=== PATIENT | female | born 1975 | race Caucasian/White ===

== ENCOUNTER 2023-01-17 01:07 | Emergency (ER) | payer MEDICAID ==
[~2023-01-17] VITALS: Ht 162.6 cm; Wt 86.2 kg
[2023-01-17 01:14] VITALS: BP 141/96
[2023-01-17] MEDS ORDERED: FLUORESCEIN OPTH STRIP 1 MG OP ONE (01:45)
[2023-01-17] MEDS ORDERED: TETRACAINE HCL/PF 0.5% OPTH 4 ML BTL OP ONE (01:45)
[2023-01-17] MEDS ORDERED: ERYT5OIN58 OP (03:17)
[2023-01-17] MEDS ORDERED: IBUP-2213 PO (03:17)
[2023-01-17 03:49] VITALS: BP 141/96
--- NOTE | 2023-01-17 03:49 | NUR ---
Patient discharged with v/s stable. Written and verbal after care instructions given and explained. New rx ibuprofen and erythomycin. Patient verbalized understanding. Ambulatory with steady gait. All questions addressed prior to discharge. Advised to follow up with PMD.
--- NOTE | 2023-01-17 03:49 | NUR ---
Pt seen and evaluated by RALPH
== END 2023-01-17 03:49 | disposition home or self-care (01) ==
LOC: MED 01:07
DX: H01.004 Unspecified blepharitis left upper eyelid (principal); H00.014 Hordeolum externum left upper eyelid; Z79.1 Long term (current) use of non-steroidal anti-inflammatories (NSAID); Z79.2 Long term (current) use of antibiotics
CPT/HCPCS: 99283

== ENCOUNTER 2023-04-20 18:28 | Emergency (ER) | payer MEDICAID ==
[~2023-04-20] VITALS: Ht 160 cm; Wt 86.2 kg
[~2023-04-20 18:28] MED LIST: ERYT5OIN58 OP; IBUP-2213 PO
[2023-04-20 18:36] VITALS: BP 142/86; PULSE 99; RESP 20; TEMP 97; O2SAT 99
[2023-04-20] MEDS ORDERED: IBUPROFEN 600 MG TAB PO ONE (19:45)
[2023-04-20] MEDS ORDERED: ERYT5OIN58 OP (19:52)
[2023-04-20] MEDS ORDERED: IBUP-2213 PO (19:52)
--- NOTE | 2023-04-20 21:07 | NUR ---
PATIENT ELOPED FROM FACILITY. DISCHARGE INSTRUCTIONS NOT GIVEN TO PATIENT. DR. MEAD NOTIFIED.
== END 2023-04-20 21:07 | disposition left against medical advice (07) ==
LOC: MED 18:28
DX: H01.001 Unspecified blepharitis right upper eyelid (principal); Z79.899 Other long term (current) drug therapy
CPT/HCPCS: 99283